=== PATIENT | male | born 1965 | race Caucasian/White ===

== ENCOUNTER 2016-03-31 14:42 | Emergency (ER) | payer OTHER ==
[2016-03-31 15:25] VITALS: BP 122/73; PULSE 59; RESP 16; TEMP 97.5; O2SAT 94
[2016-03-31 15:36] LABS: LEUKOCYTE ESTERASE,URINE 2+ (NEGATIVE); NITRITE,URINE NEGATIVE (NEGATIVE); PH,URINE 6.5 (5.0-7.5)
[2016-03-31 15:37] LABS: COLOR DARK YELLOW
[2016-03-31 15:43] LABS: BACTERIA TRACE /hpf (NONE SEEN); MUCUS 1+ /lpf (NONE-1+); RBC,URINE >182 /hpf (0-3)
--- NOTE | 2016-03-31 16:19 | UCPHY ---
H & P Time Seen by Provider: 03/31/16 15:41 Patient Type: New HPI/ROS: This patient presents with a chief complaint of hematuria which she noticed when he 1st void at approximately 10 o'clock this morning. His 1st morning urine was entirely normal. While he was urinating there was a sudden involuntary stoppage of the stream and since then he has had to strain the pass urine. He also has some dysuria and urgency. But no frequency. When the stoppage of urine flow. He had some midline abdominal pain which has since resolved. He has somewhat chronic low back pain which is not changed since the onset of these symptoms. He denies any nausea, vomiting, constipation or diarrhea although his stools have been somewhat irregular and loose. He has been diagnosed with prostatitis in the past and had a rectal exam approximately 3 months ago when he was told that is prostate was enlarged. He was placed on Cipro and urine culture showed enterococcus faecalis which was balbuena sensitive. 1 month ago he also had a sudden stoppage of urination and at some point afterwards past what he thought was a stone but he was unable to examine fully. Based on Internet photographs he believes it was a uric acid stone. REVIEW OF SYSTEMS: Constitutional: No fever, fatigue or malaise Eyes: ENT: Respiratory: Cardiac: Gastrointestinal: See above Genitourinary: He denies any symptoms related to his external genitalia and has had no discharge. Musculoskeletal: Chronic back pain, no flank pain Smoking Status: Never smoked Physical Exam: GENERAL: Well-appearing, well-nourished and in no acute distress. HEAD: Atraumatic, normocephalic. EYES: sclera anicteric, conjunctiva are normal. LUNGS: Breath sounds clear to auscultation bilaterally and equal. No wheezes rales or rhonchi. EXTREMITIES: Normal range of motion, NEUROLOGICAL: Cranial nerves II through XII grossly intact. Normal speech, normal gait. PSYCH: Normal mood, normal affect. SKIN: Warm, dry, normal turgor, no visible rashes or lesions. Abdomen: Soft, nontender, non distended, no organomegaly, pressure over the suprapubic area causes the sensation that he needs to void Back: No CVA or other tenderness Rectal exam: Externally negative no hemorrhoids etc. Internally the prostate seems enlarged but not particularly tender, no nodules appreciated. The exam was essentially painless. Constitutional: Initial Vital Signs Temperature (C) 36.4 C 03/31/16 15:21 Heart Rate 59 L 03/31/16 15:21 Respiratory Rate 16 03/31/16 15:21 Blood Pressure 122/73 H 03/31/16 15:21 O2 Sat (%) 94 03/31/16 15:21 Allergies/Adverse Reactions: No Known Allergies Allergy (Verified 03/31/16 15:25) Home Medications: Medication Instructions Recorded Omeprazole [Prilosec 20 mg] 20 mg PO DAILY PRN 01/17/13 Timolol [Betimol] 1 drop RTEYE DAILY 01/17/13 Ciprofloxacin [Cipro 500 mg] 500 mg PO BID #14 tab 03/31/16 Lisinopril 03/31/16 Medical Decision Making - Diagnostics Imaging: A CT scan of his abdomen and pelvis discloses no cause for his symptoms. There is extensive artifact because of hip resurfacing. ED Course/Re-evaluation: His urinalysis is consistent with an infectious process. Differential Diagnosis: At this time the cause of this patient's symptoms is unclear however I would suspect that is most likely prostatitis. There is no evidence of a ureteral calculus, pyelonephritis or urethra itis. - Data Points Laboratory Results: Laboratory Results 03/31/16 16:25 03/31/16 03/31/16 16:25 15:30 Sodium 138 mEq/L (134-144) Potassium 4.1 mEq/L (3.5-5.2) Chloride 101 mEq/L (97-110) Carbon Dioxide 26 mEq/l (22-31) Anion Gap 11 mEq/L (8-16) BUN 17 mg/dL (7-23) Creatinine 0.9 mg/dL (0.7-1.3) Estimated GFR > 60 Glucose 86 mg/dL (70-100) Calcium 9.4 mg/dL (8.5-10.4) Urine Color DARK YELLOW Urine Appearance CLOUDY Urine pH 6.5 (5.0-7.5) Ur Specific [place] 1.025 (1.002-1.030) Urine Protein 1+ H (NEGATIVE) Urine Ketones NEGATIVE (NEGATIVE) Urine Blood 3+ H (NEGATIVE) Urine Nitrate NEGATIVE (NEGATIVE) Urine Bilirubin NEGATIVE (NEGATIVE) Urine Urobilinogen 0.2 EU (0.2-1.0) Ur Leukocyte Esterase 2+ H (NEGATIVE) Urine RBC >182 H /hpf (0-3) Urine WBC 10-15 H /hpf (0-3) Ur Epithelial Cells NONE SEEN /lpf (NONE-1+) Urine Bacteria TRACE H /hpf (NONE SEEN) Urine Mucus 1+ /lpf (NONE-1+) Urine Glucose NEGATIVE (NEGATIVE) Departure - Departure Disposition: Home, Routine, Self-Care Clinical Impression: Hematuria, Urinary tract infection Condition: Good Instructions: Urinary Tract Infection in Men (ED), Hematuria (ED) Additional Instructions: It is important for you to follow up with the urologist whose name is provided to you in these pages. If your symptoms have not improved in 2 days you should be re-evaluated. Causes for concern would be fever, inability to urinate or abdominal pain. Call for pending test results in 3 day(s). [facility] [phone] [place] [facility] [phone] [facility] [phone] Tests pending: Urine culture Referrals: Farhat Fair MD [Primary Care Provider] - As per Instructions Mihir Bryan MD [Medical Doctor] - As per Instructions Prescriptions: Ciprofloxacin [Cipro 500 mg] 500 mg PO BID #14 tab - PQRS PQRS Measurement: Not applicable
[2016-03-31 16:43] LABS: ANION GAP 11 mEq/L (8-16); CALCIUM 9.4 mg/dL (8.5-10.4); CARBON DIOXIDE 26 mEq/l (22-31); CHLORIDE 101 mEq/L (97-110); CREATININE 0.9 mg/dL (0.7-1.3); GLOMERULAR FILTRATION RATE > 60; GLUCOSE 86 mg/dL (70-100); POTASSIUM 4.1 mEq/L (3.5-5.2); SODIUM 138 mEq/L (134-144)
--- NOTE | 2016-03-31 17:03 | CT ---
CT Scan of the Urinary Tract (Abdomen and Pelvis Without Contrast) Indication: Hematuria. Technique: Multidetector helical CT imaging was performed from the kidneys to the urinary bladder wi thout contrast. Dose reduction techniques were utilized. Comparison: Single view of the pelvis dated April 06, 2013. Findings: No hydronephrosis, nephrolithiasis, or calculi throughout the visualized portion of the ure ters. The urinary bladder, prostate gland, and distal 6 to 7 cm of the distal ureters are completely obscured by artifact radiating off bilateral resurfacing hip prostheses. The noncontrast liver, spleen, pancreas, contracted gallbladder, and adrenal glands are normal. The b owel pattern is normal, with the exception of mild constipation. The lung bases are clear. The heart size is normal. The abdominal aorta is normal caliber with minima l calcified mural plaque. Lumbar spine has moderate multilevel degenerative disk disease, worse at th e L5-S1 level. No fracture or bone lesion. Impression: 1. Nondiagnostic evaluation of the urinary bladder, prostate gland and distal ureters due to beam seble dening artifact radiating off bilateral hip resurfacing prostheses. 2. Normal upper urinary tract. No hydronephrosis, nephrolithiasis or perinephric inflammatory process . 3. No intraabdominal mass, lymphadenopathy or free fluid. Comment: The case was discussed with Dr. Guilherme Cornejo at time of study completion. Attention: This CT examination is specifically designed to evaluate patients who are clinically susp ected of having acute obstructive uropathy. This examination does not use radiographic contrast, and as such, provides only a limited evaluation of the abdomen, pelvis and retroperitoneum. If there i s further clinical suspicion for pathological conditions other than obstructive uropathy, a complete CT evaluation of the abdomen and pelvis utilizing intravenous, oral, and rectal contrast should be co nsidered.
== END 2016-03-31 17:16 | disposition home or self-care (01) ==
LOC: CED 14:42
DX: N39.0 Urinary tract infection, site not specified (principal)
CPT/HCPCS: 74176-PO; 80048-PO; 81003-PO; 81015-PO; 99203-PO; G0463-PO